=== PATIENT | male | born 1995 | race Caucasian/White ===

== ENCOUNTER 2018-08-05 19:21 | Emergency (ER) | payer BC ==
[2018-08-05 20:21] LABS: ADD MAN DIFF? NO
[2018-08-05 20:24] LABS: BASOPHILS % 0.6 % (0.0-2.0); EOSINOPHILS # 0.4 10^3/ul (0.0-0.5); EOSINOPHILS % 5.6 % (0.0-7.0); HEMATOCRIT 36.8 % (42.0-52.0); HEMOGLOBIN 12.8 g/dl (14.0-18.0); LYMPHOCYTES # 2.2 10^3/ul (0.8-2.9); LYMPHOCYTES % 30.9 % (15.0-51.0); MEAN CORPUSCULAR HEMOGLOBIN 29.9 pg (29.0-33.0); MEAN CORPUSCULAR HGB CONC 34.8 g/dl (32.0-37.0); MEAN PLATELET VOLUME 9.7 fl (7.4-10.4); MONOCYTE # 0.4 10^3/ul (0.3-0.9); MONOCYTES % 6.2 % (0.0-11.0); NEUTROPHIL # 3.9 10^3/ul (1.6-7.5); NEUTROPHILS % 56.6 % (39.0-77.0); PLATELET COUNT 302 10^3/UL (140-415); RED BLOOD COUNT 4.28 10^6/ul (4.70-6.10); RED CELL DISTRIBUTION WIDTH 13.2 % (11.5-14.5)
[2018-08-05 20:53] LABS: ALANINE AMINOTRANSFERASE 28 IU/L (13-69); ALBUMIN 3.1 g/dl (3.3-4.9); ALBUMIN/GLOBULIN RATIO 1.19; ALKALINE PHOSPHATASE 54 IU/L (42-121); ANION GAP 9 (8-16); ASPARTATE AMINO TRANSFERASE 25 IU/L (15-46); BILIRUBIN,INDIRECT 0.4 mg/dl (0-1.1); BILIRUBIN,TOTAL 0.4 mg/dl (0.2-1.3); BLOOD UREA NITROGEN 10 mg/dl (7-20); CALCIUM 7.6 mg/dl (8.4-10.2); CARBON DIOXIDE 24 mmol/L (21-31); CHLORIDE 112 mmol/L (97-110); CREATININE 0.75 mg/dl (0.61-1.24); GLUCOSE 87 mg/dl (70-220); SODIUM 142 mmol/L (135-144); TOTAL PROTEIN 5.7 g/dl (6.1-8.1)
[2018-08-05 21:14] LABS: ACETAMINOPHEN < 10.0 ug/ml (10.0-30.0); ETHANOL < 10.0 mg/dl; SALICYLATE < 1.0 mg/dl (5.0-30.0)
[2018-08-05 21:16] LABS: POTASSIUM 2.8 mmol/L (3.5-5.1)
[2018-08-05 21:32] LABS: ADD UMIC YES; UR ASCORBIC ACID NEGATIVE (NEGATIVE); UR BACTERIA FEW /HPF (NONE SEEN); UR BILIRUBIN (Dip) NEGATIVE (NEGATIVE); UR BLOOD (Dip) NEGATIVE (NEGATIVE); UR CLARITY CLEAR (CLEAR); UR COLOR YELLOW (YELLOW); UR GLUCOSE (Dip) NEGATIVE (NEGATIVE); UR KETONES (Dip) NEGATIVE (NEGATIVE); UR LEUKOCYTE ESTERASE (Dip) NEGATIVE Leu/ul (NEGATIVE); UR MUCUS MODERATE /HPF (NONE SEEN); UR NITRITE (Dip) NEGATIVE (NEGATIVE); UR RBC 0 /HPF (0-5); UR TOTAL PROTEIN (Dip) 1+ mg/dl (NEGATIVE); UR UROBILINOGEN (Dip) 1+ mg/dL (NEGATIVE); UR WBC 1 /HPF (0-5)
[2018-08-05 21:47] LABS: BARBITURATES Negative (NEGATIVE); CANNABINOIDS Positive (NEGATIVE); COCAINE Negative (NEGATIVE); OPIATES Negative (NEGATIVE)
[2018-08-05 22:02] LABS: AMPHETAMINE/METHAMPHETAMINE Positive (NEGATIVE); BENZODIAZEPINES Positive (NEGATIVE)
[2018-08-05] MEDS: OLANZAPINE 10 MG VIAL IM (22:08)
[2018-08-05] MEDS: LORAZEPAM 2 MG INJ IM (22:08)
[2018-08-05] MEDS: POTASSIUM CHLORIDE 40 MEQ in SOD CHLORIDE 0.9% 1,000 ML IV (23:19)
[2018-08-06] MEDS: OLANZAPINE 5 MG TAB PO ×3 (09:49→23:00)
[2018-08-06 11:43] LABS: ANION GAP 9 (8-16); BLOOD UREA NITROGEN 10 mg/dl (7-20); CALCIUM 8.8 mg/dl (8.4-10.2); CARBON DIOXIDE 26 mmol/L (21-31); CHLORIDE 111 mmol/L (97-110); CREATININE 0.71 mg/dl (0.61-1.24); GLUCOSE 86 mg/dl (70-220); POTASSIUM 4.2 mmol/L (3.5-5.1); SODIUM 142 mmol/L (135-144)
[2018-08-06] MEDS: POTASSIUM CHLORIDE (SR) 20 MEQ TAB PO (16:26)
[2018-08-07] MEDS: OLANZAPINE 5 MG TAB PO (09:18)
== END 2018-08-07 10:54 | disposition home or self-care (01) ==
LOC: E/R 08-07 10:54
DX: F19.20 Other psychoactive substance dependence, uncomplicated (principal); F23 Brief psychotic disorder; E87.6 Hypokalemia
CPT/HCPCS: 36415; 80048; 80053; 80307; 81001; 85025; 96372; 96374; 99291-25